=== PATIENT | female | born 2000 | race Caucasian/White ===

== ENCOUNTER → 2023-02-13 08:08 | Outpatient (CLI) | payer OTHER, SELFPAY ==
--- NOTE | 2023-02-13 08:13 | DI.RAD.S_ITS ---
PROCEDURE: XR HIP W PEL IF DONE BILAT 2V INDICATIONS: Hip pain TECHNIQUE: AP pelvis with lateral view(s) of the both hip(s). COMPARISON: [facility], CR, XR LUMBAR SPINE 2-3V, 02/13/2023, 8:27. FINDINGS: Bones: No fractures or dislocations. Pelvic ring appears intact. No suspicious bony lesions. No avascular necrosis of the femoral heads. Soft tissues: The visualized bowel gas pattern is normal. No suspicious soft tissue calcifications. IMPRESSION: No fracture or dislocation. Dictated by: Brad Adhikari M.D. on 02/13/2023 at 9:52 Approved by: Brad Adhikari M.D. on 02/13/2023 at 9:55
--- NOTE | 2023-02-13 08:23 | DI.RAD.S_ITS ---
PROCEDURE: XR LUMBAR SPINE 2-3V INDICATIONS: Low back pain TECHNIQUE: 3 views of the lumbar spine were acquired. COMPARISON: [facility], CR, XR HIP W PEL IF DONE BILAT 2V, 02/13/2023, 8:27. FINDINGS: Bones: 5 [id number] vertebrae are present. There is normal bony alignment. No vertebral body compression fractures. No suspicious bony lesions. Preserved disc space height. Soft tissues: Overlying bowel gas pattern is normal. No suspicious soft tissue calcifications. IMPRESSION: No significant osseous abnormality. Dictated by: Brad Adhikari M.D. on 02/13/2023 at 9:55 Approved by: Brad Adhikari M.D. on 02/13/2023 at 9:56
== END ==
PROVIDERS: Referring Provider Nurse Practitioner Family; Visit Provider Nurse Practitioner Family
DX: M25.559 Pain in unspecified hip (principal); M54.50 Low back pain, unspecified
CPT/HCPCS: 72100; 73521